=== PATIENT | female | born 1985 | race Asian ===

== ENCOUNTER 2023-06-20 21:27 | Outpatient (CLI) | payer OTHER | END 2023-06-20 23:59 | disposition critical access hospital (66) | LOC: EMS 21:27 | DX: K08.419 Partial loss of teeth due to trauma, unspecified class (principal); R68.84 Jaw pain; M25.551 Pain in right hip; M25.552 Pain in left hip; Y04.2XXA Assault by strike against or bumped into by another person, initial encounter; Y92.511 Restaurant or cafe as the place of occurrence of the external cause; Y99.0 Civilian activity done for income or pay | CPT/HCPCS: A0425; A0429 ==

== ENCOUNTER 2023-06-20 21:49 | Emergency (ER) | payer OTHER ==
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
[2023-06-20] MEDS ORDERED: iohexoL-300 100 ML VIAL ONE (23:44)
[2023-06-20] MEDS: MORPHINE 2 MG/ML CARPUJECT IVP STA (23:46)
[2023-06-20] MEDS: ONDANSETRON 4 MG/2 ML VIAL IVP STA (23:46)
[2023-06-20] MEDS: SODIUM CHLORIDE 0.9% 1,000 ML IV STA (23:46)
[2023-06-21 00:01] LABS: BASOPHILS % (AUTO) 0.3 %; EOSINOPHILS % (AUTO) 0.1 %; HCT - HEMATOCRIT 41.1 % (37.0-47.0); HGB - HEMOGLOBIN 13.5 g/dL (12.0-16.0); LYMPHOCYTES # (AUTO) 1.8 10^3/uL (1.5-3.5); LYMPHOCYTES % (AUTO) 16.9 %; MEAN CORPUSCULAR HEMOGLOBIN 31.4 pg (27.0-31.0); MEAN CORPUSCULAR HGB CONC 32.8 g/dL (32.0-36.0); MEAN CORPUSCULAR VOLUME 95.6 fL (81.0-99.0); MEAN PLATELET VOLUME 9.3 fL (7.9-10.8); MONOCYTES # (AUTO) 0.6 10^3/uL (0.0-1.0); MONOCYTES % (AUTO) 5.5 %; NEUTROPHILS # (AUTO) 8.2 10^3/uL (1.5-6.6); NEUTROPHILS % (AUTO) 76.7 %; PLT - PLATELET COUNT 220 10^3/uL (130-450); RED CELL DISTRIBUTION WIDTH 12.1 % (12.0-15.0); WHITE BLOOD COUNT 10.7 x10^3/uL (4.8-10.8)
[2023-06-21 00:12] LABS: ALBUMIN 4.4 g/dL (3.2-5.5); ALBUMIN/GLOBULIN RATIO 1.5 (1.0-2.2); BILIRUBIN,TOTAL 0.3 mg/dL (0.2-1.0); CALCIUM 9.8 mg/dL (8.5-10.3); POTASSIUM 3.5 mmol/L (3.5-4.5); TOTAL PROTEIN 7.3 g/dL (6.4-8.9)
[2023-06-21 00:37] LABS: CREATININE 0.6 mg/dL (0.6-1.3)
[2023-06-21] MEDS: iohexoL-300 100 ML VIAL IVP ONE (01:24)
[2023-06-21] MEDS: ONDANSETRON 4 MG/2 ML VIAL IVP STA (01:38)
[2023-06-21] MEDS: MORPHINE 2 MG/ML CARPUJECT IVP STA (01:49)
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
[2023-06-21] MEDS: KETOROLAC 30 MG/ML VIAL IVP STA (01:55)
[2023-06-21] MEDS: SODIUM CHLORIDE 0.9% 1,000 ML IV STA (01:56)
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
[2023-06-21] MEDS: PROMETHAZINE INJ 25 MG in SODIUM CHLORIDE 0.9% 50 ML IV STA (03:00)
[2023-06-21] MEDS ORDERED: PROMETHAZINE 25 MG/1 ML VIAL ONE (03:00)
[2023-06-21 04:17] VITALS: BP 94/56; O2SAT 99
[2023-06-21] MEDS: ONDANSETRON ODT 4 MG Prepack 2 TL PRN (04:36)
[2023-06-21] MEDS: oxyCODONE/ACET 5/325 Prepack 4 PO STA (04:36)
== END 2023-06-21 04:45 | disposition home or self-care (01) ==
LOC: ED 21:49
DX: S00.83XA Contusion of other part of head, initial encounter (principal); S03.2XXA Dislocation of tooth, initial encounter; Y04.0XXA Assault by unarmed brawl or fight, initial encounter
CPT/HCPCS: 36415; 70450; 70486; 71250; 72125; 74177; 80053; 83690; 85025; 96361; 96365; 96375; 96376; 99284; 99285; A9270; Q9967; 1040M